=== PATIENT | male | born 1995 | race Caucasian/White ===

== ENCOUNTER 2018-06-06 21:59 | Emergency (ER) | payer MEDICAID ==
[~2018-06-06] VITALS: Ht 175.3 cm; Wt 102.1 kg
[2018-06-06 22:02] VITALS: BP 128/90
[2018-06-06] MEDS: NACL 0.9% 2,000 ML IV ONE (22:47)
[2018-06-06] MEDS: ONDANSETRON 4 MG/2 ML VIAL IVP ONE (22:47)
[2018-06-06 23:26] LABS: BASOPHILS % (AUTO) 0.3 % (0.0-2.0); EOSINOPHILS # (AUTO) 0.1 K/uL (0-0.4); HEMATOCRIT 48.4 % (36-52); HEMOGLOBIN 16.3 g/dL (12.0-18.0); LYMPHOCYTES # (AUTO) 1.5 K/uL (2.0-11.5); LYMPHOCYTES % (AUTO) 22.8 % (20.5-51.1); MEAN CORPUSCULAR HEMOGLOBIN 28 pg (27-31); MEAN CORPUSCULAR HGB CONC 34 g/dL (33-37); MEAN CORPUSCULAR VOLUME 82.8 fL (80-94); MONOCYTES # (AUTO) 1.1 K/uL (0.8-1.0); MONOCYTES % (AUTO) 15.9 % (1.7-9.3); PLATELET COUNT (AUTO) 180 K/uL (140-450); RED BLOOD CELL COUNT(AUTO) 5.85 MIL/uL (4.20-6.10); RED CELL DISTRIBUTION WIDTH 13.5 % (11.6-13.7); WHITE BLOOD COUNT (AUTO) 6.6 K/uL (4.8-10.8)
[2018-06-06 23:26] LABS: APPEARANCE,URINE CLEAR (CLEAR); BILIRUBIN,URINE 1+ (NEGATIVE); BLOOD, URINE 2+ (NEGATIVE); COLOR,URINE YELLOW (YELLOW); LEUKOCYTE ESTERASE ,URINE NEGATIVE (NEGATIVE); NITRITE, URINE NEGATIVE (NEGATIVE); UGLUCOSE NEGATIVE (NEGATIVE)
[2018-06-06 23:45] LABS: HYALINE CASTS, URINE 0-10 /LPF (None Seen); RBC,URINE 3-10 (FEW) /HPF (0-5); WBC,URINE 0-5 (RARE) /HPF (0-5)
[2018-06-06 23:48] LABS: ANION GAP 16.4 (8-16); CARBON DIOXIDE 24.7 mmol/L (21-32); CREATININE 1.2 mg/dL (0.7-1.3); POTASSIUM 3.1 mmol/L (3.5-5.1)
[2018-06-06 23:53] LABS: ALBUMIN 4.3 g/dL (3.4-5.0); TOTAL BILIRUBIN 0.9 mg/dL (0.0-1.0)
[2018-06-07] MEDS: POTASSIUM CHLORIDE 10 MEQ TABER PO ONE (04:08)
[2018-06-07 04:20] VITALS: BP 133/76
== END 2018-06-07 04:20 | disposition home or self-care (01) ==
LOC: MED 21:59
DX: E87.6 Hypokalemia (principal); R11.2 Nausea with vomiting, unspecified; R19.7 Diarrhea, unspecified; Z91.018 Allergy to other foods
CPT/HCPCS: 36415; 74022; 74177; 80053; 81001; 83690; 85025; 87086; 96361; 96374; 99285; J2405; J7030; Q9967

== ENCOUNTER 2019-01-20 16:31 | Emergency (ER) | payer SELFPAY ==
[~2019-01-20] VITALS: Ht 175.3 cm; Wt 104.3 kg
[2019-01-20 16:39] VITALS: BP 137/84
--- NOTE | 2019-01-20 17:15 | NUR ---
PATIENT AMBULATED TO ER BED 11.
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
[2019-01-20] MEDS ORDERED: ONDANSETRON 4 MG/2 ML VIAL IVP ONE (17:55)
[2019-01-20] MEDS ORDERED: ACETAMINOPHEN EXTRA STRENGTH 500 MG TAB PO ONE (17:55)
[2019-01-20] MEDS ORDERED: MORPHINE SULFATE 4 MG/ML SYR IM ONE (17:55)
[2019-01-20] MEDS ORDERED: NACL 0.9% 2,000 ML IV ONE (17:55)
--- NOTE | 2019-01-20 18:00 | NUR ---
PATIENT RESTING AT THIS TIME. NO SIGNS OF DISTRESS.
[2019-01-20 19:02] LABS: APPEARANCE,URINE CLEAR (CLEAR); BILIRUBIN,URINE NEGATIVE (NEGATIVE); BLOOD, URINE NEGATIVE (NEGATIVE); COLOR,URINE YELLOW (YELLOW); LEUKOCYTE ESTERASE ,URINE NEGATIVE (NEGATIVE); NITRITE, URINE NEGATIVE (NEGATIVE); UGLUCOSE NEGATIVE (NEGATIVE)
--- NOTE | 2019-01-20 19:10 | NUR ---
Pt report given to KHADIJAH MALONEY. Transfer of care at this time.
[2019-01-20 19:38] LABS: PROTHROMBIN TIME 10.6 secs (10.8-13.4)
[2019-01-20 19:39] LABS: ANION GAP 14.3 (8-16); BASOPHILS % (AUTO) 0.4 % (0.0-2.0); CARBON DIOXIDE 25.1 mmol/L (21-32); EOSINOPHILS % (AUTO) 0.5 % (0.0-4.0); HEMATOCRIT 41.9 % (36-52); LYMPHOCYTES # (AUTO) 0.4 K/uL (2.0-11.5); LYMPHOCYTES % (AUTO) 5.4 % (20.5-51.1); MEAN CORPUSCULAR HEMOGLOBIN 28 pg (27-31); MEAN CORPUSCULAR HGB CONC 34 g/dL (33-37); MEAN CORPUSCULAR VOLUME 82.5 fL (80-94); MONOCYTES # (AUTO) 0.6 K/uL (0.8-1.0); MONOCYTES % (AUTO) 7.9 % (1.7-9.3); NEUTROPHILS # (AUTO) 6.2 K/uL (1.8-7.7); NEUTROPHILS % (AUTO) 85.8 % (42.2-75.2); PLATELET COUNT (AUTO) 134 K/uL (140-450); POTASSIUM 3.4 mmol/L (3.5-5.1); RED BLOOD CELL COUNT(AUTO) 5.07 MIL/uL (4.20-6.10); TOTAL BILIRUBIN 0.7 mg/dL (0.0-1.0); WHITE BLOOD COUNT (AUTO) 7.2 K/uL (4.8-10.8)
[2019-01-20 21:25] VITALS: BP 130/82
--- NOTE | 2019-01-20 21:25 | NUR ---
Patient discharged with v/s stable. Written and verbal after care instructions given and explained. Patient alert, oriented and verbalized understanding of instructions. Ambulatory with steady gait. All questions addressed prior to discharge. ID band removed. Patient advised to follow up with PMD. Rx of ZOFRAN, TAMIFLU, IBUPROFEN AND PROMETHAZINE given. Patient educated on indication of medication including possible reaction and side effects. Opportunity to ask questions provided and answered.
== END 2019-01-20 21:25 | disposition home or self-care (01) ==
LOC: MED 16:31
DX: R10.9 Unspecified abdominal pain (principal); R11.2 Nausea with vomiting, unspecified; R14.3 Flatulence; Z88.8 Allergy status to other drugs, medicaments and biological substances
CPT/HCPCS: 36415; 74177; 80053; 81003; 83690; 85025; 85610; 85730; 87804; 96361; 96374; 96375; 99284; J2270; J2405; J7030; Q9967; 96372

== ENCOUNTER 2019-05-22 10:54 | Emergency (ER) | payer MEDICAID ==
[~2019-05-22] VITALS: Ht 175.3 cm; Wt 106.6 kg
[2019-05-22 11:04] VITALS: BP 153/99
--- NOTE | 2019-05-22 11:04 | NUR ---
BIB SELF. PT AAOX4. C/O SORE THROAT FOR TWO WEEKS (6-06/09), COUGH AT NIGHT. EAR PAIN ON AND OFF FOR ONE WEEK. FEEL CHEST CONGESTED. DENIES FEVER, CHEST PAIN, SOB. MILD REDNESS AT THE BACK OF THE THROAT. PAIN 6/10 AT THIS TIME. ER MD TO SEE THE PT. PT DENIES ANY MEDICAL HS. STATES OF TAKING NIQUIL , PROMETHAZINE AT HOME.
--- NOTE | 2019-05-22 11:14 | NUR ---
Patient ambulated to bed 9. RN evaluating patient at bedside.
--- NOTE | 2019-05-22 11:17 | NUR ---
Dr. Sargent evaluating patient at bedside.
[2019-05-22 11:30] VITALS: BP 153/99
--- NOTE | 2019-05-22 11:30 | NUR ---
Patient discharged with v/s stable. Written and verbal after care instructions given and explained. Patient alert, oriented and verbalized understanding of instructions. with . All questions addressed prior to discharge. ID band removed. Patient advised to follow up with PMD. Rx of MOTRIN AND PREDNISONE given. Patient educated on indication of medication including possible reaction and side effects. Opportunity to ask questions provided and answered.
== END 2019-05-22 11:30 | disposition home or self-care (01) ==
LOC: MED 10:54
DX: J02.9 Acute pharyngitis, unspecified (principal); Z88.8 Allergy status to other drugs, medicaments and biological substances; Z98.890 Other specified postprocedural states
CPT/HCPCS: 99283

== ENCOUNTER 2019-07-11 08:59 | Emergency (ER) | payer MEDICAID ==
[~2019-07-11] VITALS: Ht 175.3 cm; Wt 113.4 kg
[2019-07-11 09:01] VITALS: BP 131/78
--- NOTE | 2019-07-11 09:13 | NUR ---
PATIENT AMBULATED TO BED 3.
[2019-07-11] MEDS ORDERED: KETOROLAC 30 MG/ML VIAL IVP ONE (09:20)
[2019-07-11] MEDS ORDERED: FAMOTIDINE 20 MG/2 ML VIAL IVP ONE (09:20)
[2019-07-11] MEDS ORDERED: ONDANSETRON 4 MG/2 ML VIAL IVP ONE (09:20)
[2019-07-11] MEDS ORDERED: NACL 0.9% 1,000 ML IV ONE (09:20)
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
--- NOTE | 2019-07-11 09:55 | NUR ---
PT BACK FROM CT
[2019-07-11] MEDS ORDERED: METOCLOPRAMIDE 10 MG/2 ML INJ VIAL IVP ONE (10:40)
--- NOTE | 2019-07-11 11:08 | NUR ---
Patient states nausea decreased after the reglan. But pain has increased again 04/09.
[2019-07-11] MEDS ORDERED: MORPHINE SULFATE 4 MG/ML SYR IVP ONE (11:15)
--- NOTE | 2019-07-11 11:40 | NUR ---
Patient discharged with v/s stable. Written and verbal after care instructions given and explained. Patient alert, oriented and verbalized understanding of instructions. Ambulatory with steady gait. All questions addressed prior to discharge. ID band removed. Patient advised to follow up with PMD. Rx of ZANTAC, ZOFRAN, IBUPROFEN given. Patient educated on indication of medication including possible reaction and side effects. Opportunity to ask questions provided and answered.
[2019-07-11 11:41] VITALS: BP 132/82
== END 2019-07-11 11:40 | disposition home or self-care (01) ==
LOC: MED 08:59
DX: R11.2 Nausea with vomiting, unspecified (principal); R10.9 Unspecified abdominal pain; Z88.8 Allergy status to other drugs, medicaments and biological substances
CPT/HCPCS: 74176; 96361; 96374; 96375; 99284; J1885; J2270; J2405; J2765; J3490; J7030

== ENCOUNTER 2019-07-12 15:35 | Emergency (ER) | payer MEDICAID ==
[~2019-07-12] VITALS: Ht 175.3 cm; Wt 113.4 kg
[2019-07-12 15:40] VITALS: BP 136/68
--- NOTE | 2019-07-12 16:13 | NUR ---
PT AMB TO ER BED 8
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
--- NOTE | 2019-07-12 16:26 | NUR ---
LABS DRAWN AND HANDED TO PROJECT ENGINEERING MANAGER
[2019-07-12 16:33] LABS: BASOPHILS % (AUTO) 0.4 % (0.0-2.0); EOSINOPHILS # (AUTO) 0.2 K/uL (0-0.4); EOSINOPHILS % (AUTO) 2.8 % (0.0-4.0); HEMATOCRIT 38.4 % (36-52); LYMPHOCYTES # (AUTO) 1.5 K/uL (2.0-11.5); LYMPHOCYTES % (AUTO) 17.4 % (20.5-51.1); MEAN CORPUSCULAR HEMOGLOBIN 28 pg (27-31); MEAN CORPUSCULAR HGB CONC 34 g/dL (33-37); MEAN CORPUSCULAR VOLUME 82.7 fL (80-94); MONOCYTES # (AUTO) 0.5 K/uL (0.8-1.0); MONOCYTES % (AUTO) 6.2 % (1.7-9.3); NEUTROPHILS # (AUTO) 6.2 K/uL (1.8-7.7); NEUTROPHILS % (AUTO) 73.2 % (42.2-75.2); PLATELET COUNT (AUTO) 329 K/uL (140-450); RED BLOOD CELL COUNT(AUTO) 4.64 MIL/uL (4.20-6.10); RED CELL DISTRIBUTION WIDTH 13.4 % (11.6-13.7); WHITE BLOOD COUNT (AUTO) 8.4 K/uL (4.8-10.8)
[2019-07-12 16:56] LABS: ALBUMIN 2.8 g/dL (3.4-5.0); ANION GAP 11.1 (8-16); CARBON DIOXIDE 26.7 mmol/L (21-32); CREATININE 0.7 mg/dL (0.7-1.3); TOTAL BILIRUBIN 0.5 mg/dL (0.0-1.0)
[2019-07-12 17:02] LABS: POTASSIUM 2.8 mmol/L (3.5-5.1)
--- NOTE | 2019-07-12 17:02 | NUR ---
POTASSIUM 2.8
[2019-07-12] MEDS: METOCLOPRAMIDE 10 MG/2 ML INJ VIAL IVP ONE (17:48)
[2019-07-12] MEDS: POTASSIUM CHLORIDE 20% 40 MEQ/15 ML UDC PO ONE (17:49)
[2019-07-12] MEDS: NACL 0.9% 1,000 ML IV ONE (17:52)
--- NOTE | 2019-07-12 18:15 | NUR ---
VSS AT THIS TIME. PT AA0X4. PAIN 04/09. FAMILY BEDSIDE
[2019-07-12 19:22] VITALS: BP 149/93
--- NOTE | 2019-07-12 19:25 | NUR ---
Patient discharged with v/s stable. Educated pt to eat foods with potassium such as fruits, vegetables, and orange juice. Written and verbal after care instructions given and explained. Patient alert, oriented and verbalized understanding of instructions. Ambulatory with steady gait. All questions addressed prior to discharge. ID band removed. Patient advised to follow up with PMD. Rx of phenergan and reglan were given. Patient educated on indication of medication including possible reaction and side effects. Opportunity to ask questions provided and answered.
== END 2019-07-12 19:22 | disposition home or self-care (01) ==
LOC: MED 15:35
DX: E86.0 Dehydration (principal); E87.6 Hypokalemia; R11.2 Nausea with vomiting, unspecified; Z88.8 Allergy status to other drugs, medicaments and biological substances
CPT/HCPCS: 36415; 80053; 83690; 85025; 96361; 96374; 99283; J2765; J7030

== ENCOUNTER 2019-07-13 21:29 | Emergency (ER) | payer MEDICAID ==
[~2019-07-13] VITALS: Ht 175.3 cm; Wt 109.0 kg
[2019-07-13 21:41] VITALS: BP 129/61
--- NOTE | 2019-07-13 21:43 | NUR ---
TO LOBBY A/W BED AMBULATORY
[2019-07-13 22:19] LABS: BASOPHILS % (AUTO) 0.3 % (0.0-2.0); EOSINOPHILS # (AUTO) 0.2 K/uL (0-0.4); EOSINOPHILS % (AUTO) 2.4 % (0.0-4.0); HEMATOCRIT 40.1 % (36-52); HEMOGLOBIN 13.7 g/dL (12.0-18.0); LYMPHOCYTES # (AUTO) 1.9 K/uL (2.0-11.5); LYMPHOCYTES % (AUTO) 20.3 % (20.5-51.1); MEAN CORPUSCULAR HEMOGLOBIN 28 pg (27-31); MEAN CORPUSCULAR HGB CONC 34 g/dL (33-37); MEAN CORPUSCULAR VOLUME 82.5 fL (80-94); MONOCYTES # (AUTO) 0.6 K/uL (0.8-1.0); MONOCYTES % (AUTO) 6.4 % (1.7-9.3); NEUTROPHILS # (AUTO) 6.5 K/uL (1.8-7.7); NEUTROPHILS % (AUTO) 70.6 % (42.2-75.2); PLATELET COUNT (AUTO) 333 K/uL (140-450); RED BLOOD CELL COUNT(AUTO) 4.87 MIL/uL (4.20-6.10); RED CELL DISTRIBUTION WIDTH 13.3 % (11.6-13.7); WHITE BLOOD COUNT (AUTO) 9.2 K/uL (4.8-10.8)
--- NOTE | 2019-07-13 22:22 | NUR ---
PT AMBULATED TO BED 4
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
[2019-07-13 23:52] LABS: ANION GAP 15.7 (8-16); CARBON DIOXIDE 28.1 mmol/L (21-32); CREATININE 0.9 mg/dL (0.7-1.3); POTASSIUM 3.8 mmol/L (3.5-5.1)
[2019-07-13 23:55] LABS: ALBUMIN 3.8 g/dL (3.4-5.0); TOTAL BILIRUBIN 0.7 mg/dL (0.0-1.0)
[2019-07-14] MEDS ORDERED: KETOROLAC 60 MG/2 ML VIAL IM ONE (00:05)
[2019-07-14] MEDS ORDERED: ONDANSETRON 4 MG ODT PO ONE (00:05)
[2019-07-14] MEDS ORDERED: ONDANSETRON 4 MG/2 ML VIAL IVP ONE (00:20)
[2019-07-14] MEDS ORDERED: MORPHINE SULFATE 4 MG/ML SYR IVP ONE ×2 (00:20→04:45)
[2019-07-14] MEDS ORDERED: NACL 0.9% 1,000 ML IV ONE (00:20)
--- NOTE | 2019-07-14 01:32 | NUR ---
Patient to be transferred to [facility]. Is being transferred due to CONTINUATION OF CARE. Receiving facility has accepting physician and available space. ER physician has signed transfer form. Patient or responsible libertarian has agreed to transfer and signed form. Patient belongings inventoried and will be sent with patient. Copy of nursing notes, lab reports, EKG, Physicians Orders and X-rays to be sent with patient. Report called to HAIDER SERRANO at receiving facility. [facility] ambulance service has been called for transfer. ETA is 60-90MIN.
--- NOTE | 2019-07-14 01:32 | NUR ---
REPORT CALLED TO HAIDER SERRANO AT [facility]. ETA FOR TRANSPORT 60-90 MIN W/ [facility].
--- NOTE | 2019-07-14 03:30 | NUR ---
INFORMED BY [facility] THAT PT TRANSPORT WILL BE DELAYED TO 05:30.
--- NOTE | 2019-07-14 04:42 | NUR ---
COMPLAINED OF ABD PAIN, BACK PAIN, ERMD NOTED, MADE ORDER , AND CARRIED OUT.
--- NOTE | 2019-07-14 04:47 | NUR ---
MEDICATED PER ERMDS ORDER , PATIENT TOLERATED WELL.
--- NOTE | 2019-07-14 05:30 | NUR ---
REPORT GIVEN TO [facility] STAFF MARTIN
[2019-07-14 05:31] VITALS: BP 130/75
--- NOTE | 2019-07-14 05:31 | NUR ---
TRANSFERRED TO [facility] VIA AMBULANCE [facility] FOR HIGHER LEVEL OF CARE .PATIENT IN STABLE CONDITION,ALERT AWAKE , AMBULATORY, NO RESPIRATORY DISTRESS.
== END 2019-07-14 05:31 | disposition short-term general hospital (02) ==
LOC: MED 21:29
DX: R10.84 Generalized abdominal pain (principal); R11.2 Nausea with vomiting, unspecified; Z88.8 Allergy status to other drugs, medicaments and biological substances
CPT/HCPCS: 36415; 74022; 80053; 83690; 85025; 96361; 96374; 96375; 96376; 99285; J1885; J2270; J2405; J7030; Q0162